=== PATIENT | female | born 1960 | race Caucasian/White ===

== ENCOUNTER 2021-04-21 18:26 | Emergency (ER) | payer SELFPAY ==
[~2021-04-21] VITALS: Ht 154.9 cm; Wt 72.6 kg
[2021-04-21 18:55] VITALS: BP 113/87
[2021-04-21 19:58] LABS: BASOPHILS % (AUTO) 0.4 % (0.0-2.0); EOSINOPHILS % (AUTO) 0.2 % (0.0-4.0); HEMATOCRIT 44.7 % (36-48); HEMOGLOBIN 15.6 g/dL (12.0-16.0); LYMPHOCYTES # (AUTO) 0.7 K/uL (2.5-16.5); LYMPHOCYTES % (AUTO) 6.3 % (20.5-51.1); MEAN CORPUSCULAR HEMOGLOBIN 29 pg (27-31); MEAN CORPUSCULAR HGB CONC 35 g/dL (33-37); MEAN CORPUSCULAR VOLUME 84.4 fL (80-94); MONOCYTES # (AUTO) 0.7 K/uL (0.8-1.0); MONOCYTES % (AUTO) 6.5 % (1.7-9.3); NEUTROPHILS # (AUTO) 9.4 K/uL (1.8-7.7); NEUTROPHILS % (AUTO) 86.6 % (42.2-75.2); PLATELET COUNT (AUTO) 164 K/uL (140-450); RED BLOOD CELL COUNT(AUTO) 5.29 MIL/uL (4.20-5.40); RED CELL DISTRIBUTION WIDTH 15.2 % (11.6-13.7); WHITE BLOOD COUNT (AUTO) 10.8 K/uL (4.8-10.8)
[2021-04-21 20:16] LABS: ALBUMIN 4.2 g/dL (3.4-5.0); ANION GAP 12.1 (8-16); CARBON DIOXIDE 31.4 mmol/L (21-32); CREATININE 1.1 mg/dL (0.6-1.3); TOTAL BILIRUBIN 1.8 mg/dL (0.0-1.0)
[2021-04-21 20:19] LABS: POTASSIUM 2.5 mmol/L (3.5-5.1)
[2021-04-21] MEDS ORDERED: POTASSIUM CHLORIDE 10 MEQ TABER PO SCH (20:50)
[2021-04-21] MEDS ORDERED: MAG SULF 2000 MG/WATER PREMIX 50 ML IV ONE (21:25)
[2021-04-21] MEDS ORDERED: KCL 20 MEQ/WATER INJ PREMIX 200 ML IV ONE (21:25)
[2021-04-21] MEDS ORDERED: KETOROLAC 30 MG/ML VIAL IVP ONE (22:10)
[2021-04-21] MEDS ORDERED: ACETAMINOPHEN EXTRA STRENGTH 500 MG TAB PO ONE (22:10)
[2021-04-22 00:42] LABS: ANION GAP 9.9 (8-16); CARBON DIOXIDE 30.8 mmol/L (21-32)
[2021-04-22 00:47] LABS: POTASSIUM 2.7 mmol/L (3.5-5.1)
[2021-04-22] MEDS ORDERED: POTA-599 PO (01:23)
== END 2021-04-22 01:37 | disposition home or self-care (01) ==
LOC: MED 18:26
DX: M51.26 Other intervertebral disc displacement, lumbar region (principal); Z88.5 Allergy status to narcotic agent
CPT/HCPCS: 36415; 71045; 74176; 80048; 80053; 83690; 85025; 93005; 96365; 96366; 96368; 96375; 99285; J1885; J3475; J3480